=== PATIENT | female | born 1980 | race Hispanic/Latino ===

== ENCOUNTER 2017-12-22 07:11 | Emergency (ER) | payer MEDICAID, OTHER ==
[2017-12-22 08:00] LABS: APPEARANCE,URINE Turbid (CLEAR); BILIRUBIN,URINE Negative (NEGATIVE); COLOR,URINE Yellow (YELLOW); GLUCOSE, URINE (UA) Negative (NEGATIVE); KETONES,URINE Negative (NEGATIVE); LEUKOCYTE ESTERASE ,URINE Large (NEGATIVE); NITRATE,URINE Negative (NEGATIVE); OCCULT BLOOD,URINE Large (NEGATIVE); PROTEIN,URINE Trace (NEGATIVE)
[2017-12-22 08:10] LABS: BACTERIA,URINE Rare /HPF (None Seen); MUCUS,URINE Rare LPF (None Seen); SQUAMOUS EPITHELIAL CELL,UR Rare /LPF (0-2)
[2017-12-22] MEDS ORDERED: NITROFURANTOIN MONOHYD/M-CRYST 100 MG CAPSULE PO ONE (09:01)
== END 2017-12-22 09:15 | disposition home or self-care (01) ==
LOC: EDH 07:11
DX: O23.41 Unspecified infection of urinary tract in pregnancy, first trimester (principal); J06.9 Acute upper respiratory infection, unspecified; Z3A.01 Less than 8 weeks gestation of pregnancy
CPT/HCPCS: 81001; 81025; 87088; 87804

== ENCOUNTER 2017-12-23 00:04 | Emergency (ER) | payer MEDICAID, OTHER | END 2017-12-23 00:34 | disposition home or self-care (01) | LOC: EDH 00:04 | DX: O99.511 Diseases of the respiratory system complicating pregnancy, first trimester (principal); J06.9 Acute upper respiratory infection, unspecified; Z98.890 Other specified postprocedural states; Z3A.01 Less than 8 weeks gestation of pregnancy | CPT/HCPCS: 99282 ==